=== PATIENT | female | born 1965 | race Caucasian/White ===

== ENCOUNTER 2024-10-31 07:58 | Emergency (ER) | payer MEDICAID, SELFPAY ==
[2024-10-31 08:01] VITALS: BMI 37.2
[2024-10-31 08:09] VITALS: BP 136/90; PULSE 71; RESP 19; TEMP 37; O2SAT 98; BMI 37.2
--- NOTE | 2024-10-31 08:30 | XR_ITS ---
Examination: Forearm, right, 2 views. Technique: Forearm, AP, lateral 2 views Date and time of exam: October 31, 2024 0843 hours INDICATIONS: Patient fell today with injury to the forearm, forearm pain. FINDINGS: Nonstandard views Acute fracture radial head and neck Shaft of the radius and ulna appear intact IMPRESSION: Limited study Fractures radial head and neck
--- NOTE | 2024-10-31 08:30 | XR_ITS ---
Examination: Right elbow 3 views Technique: Elbow AP, oblique, lateral 3 views Exam date and time: October 31, 2024 at 0843 hours INDICATIONS: Patient fell today with injury to the elbow, elbow pain. FINDINGS: Acute mildly impacted fracture radial neck Fracture appears to extend to the radial head No dislocation IMPRESSION: Acute fractures radial head and neck.
--- NOTE | 2024-10-31 08:31 | PD.EDADULT ---
ED General RME/HPI General Chief complaint: Extremity Injury, Upper Stated complaint: R ARM PAIN S/P FALL YESTERDAY Time Seen by Provider: 10/31/24 08:23 Arrival date/time: 10/31/24 07:58 CC: Right forearm right elbow pain HPI status post fall, ground-level, 24 hours ago, denies LOC or ALOC. Was at [place] when this happened and drove back to this area yesterday as this is their residence. Patient denies headache blurred vision nausea vomiting shortness of breath difficulty breathing chest pain loss of consciousness or altered level of consciousness. Related Data Home Medications ?Medication ?Instructions ?Recorded ?Confirmed lisinopril 20 mg tablet 40 mg PO QDAY #0 tabs 09/26/16 04/04/18 aripiprazole 2 mg tablet (Abilify) 2 mg PO QDAY 04/03/18 04/04/18 bupropion HCl 300 mg 24 hr tablet, 300 mg PO QAM 04/03/18 04/04/18 extended release (Wellbutrin XL) [id number] 8 mg-folic 400 1 tab PO QDAY 04/03/18 04/04/18 mcg-K 50 mcg-lutein 300 mcg tablet (Centrum Silver Women) Previous Rx's ?Medication ?Instructions ?Recorded docusate sodium 100 mg capsule 100 mg PO BID #40 caps 04/04/18 (Colace) hydrocodone 5 mg-acetaminophen 325 1 tab PO [id number] PRN pain #20 tabs 04/04/18 mg tablet ([place]) Allergies Allergy/AdvReac Type Severity Reaction Status Date / Time No Known Allergies Allergy Verified 10/31/24 08:00 Review of Systems Review of Systems Narrative Review of Systems: GEN: No fever, no chills, no weight loss EYES: No discharge, no visual changes, no pain HEENT: No ear pain, no congestion, no sore throat PULM: No shortness of breath, no cough, no congestion CV: No chest pain, no dyspnea on exertion, no palpitations GI: No nausea, no vomiting, no diarrhea, no pain, no constipation : No frequency, no urgency, no dysuria MUSC/SKEL: + joint pain, no back pain SKIN: No rash PSYCH: No hallucinations, no depression HEME/LYMPH: No easy bleeding or bruising tendencies NEURO: No weakness, no headache Past Medical History Past Medical History NEUROLOGIC: Negative Neurological Disorders or Seizures CARDIAC: Positive Cardiac Disorders and Hypertension; Negative Congestive Heart Failure RESPIRATORY: Negative Chronic Obstructive Pulmonary Disease (COPD) GASTROINTESTINAL: Negative Gastrointestinal Disorders GENITOURINARY: Negative Genitourinary Disorders or Renal Disease REPRODUCTIVE: Positive Previous Pregnancies (x7) MUSCULOSKELETAL: Negative Musculoskeletal Disorders ENDOCRINE: Negative Endocrine Disorders, Diabetes Mellitus Type 1 or Diabetes Mellitus Type 2 HEMATOLOGIC: Negative Blood Disorders PSYCHO/SOCIAL: Positive Depression and Anxiety OTHER HISTORY: Positive Chicken Pox and Measles; Negative Hospitalization, Autoimmune Disease, Shingles, Falls, Blood Transfusions, Blood Transfusion Reaction or Anesthesia Reactions Family History FAMILY HISTORY: Positive Family Cardiac Disorders, Family Cancer and Family Surgery; Negative Family Psychiatric Problems, Family Respiratory Disorders, Family Gastrointestinal Problems or Family Anesthesia Reaction Surgical History SURGICAL: Positive Tonsillectomy and Tubal Ligation Social History SMOKING STATUS: Former smoker ED Exam Narrative Physical exam: [General: Obese, in mild discomfort but not in any acute distress Head normocephalic no step-offs hematoma induration ulceration or crepitus. HEENT: Within acceptable limits Neck is supple nontender full range of motion flexion extension and rotation no tenderness with palpation of the cervical spinous processes. Chest equal chest rise nontender to palpation Respiratory: Clear to auscultation no wheezes crackles or rubs CV: Rate rhythm is regular no murmurs rubs or clicks Abdomen is distended secondary to body habitus soft nontender no masses positive bowel sounds all 4 quadrants Back: No CVA tenderness no spinous process tenderness from cervical spine thoracic and lumbar spine Skin: Minor abrasions to both knees. Otherwise skin is intact no petechiae rash induration ulceration or crepitus Extremities: Right upper extremity: No decreased range of motion of the right elbow with minimal edema, no abrasions, tenderness to palpation to the proximal forearm, cap refill in the digits less than 2 seconds full range of motion of the digits and the wrist. No tenderness to the shoulder with palpation. Left upper extremity unremarkable with full range of motion. Moving all extremity against resistance cap refill less than 2 seconds neurosensory intact Neuro: Awake alert oriented x3 Glascow coma 15 no focal deficits] Course Quality Measures none Orders Category Date Time Status Splint / Immobilizer STAT Care 10/31/24 09:01 Active XR elbow comp RT min 3V Stat Exams 10/31/24 08:30 Completed XR forearm RT 2V Stat Exams 10/31/24 08:30 Completed Tetanus, Diphtheria Toxoids/Pf [Tenivac-Adult] Med 10/31/24 08:34 Discontinued 0.5 ml IMI .ONCE ONE Vital Signs Vital signs: Vital Signs Temperature 98.6 F 10/31/24 08:09 Pulse Rate 71 10/31/24 08:09 Respiratory Rate 19 10/31/24 08:09 Blood Pressure 136/90 H 10/31/24 08:09 Pulse Oximetry (%) 98 10/31/24 08:09 Oxygen Delivery Method Room Air 10/31/24 08:09 Discharge Plan Plan Patient Disposition: HOME (Self Care) Patient condition on transfer: Stable Prescriptions/Referrals Prescriptions/Med Rec: No Action lisinopril 20 MG tablet 40 mg PO QDAY Qty: 0 bupropion HCl [Wellbutrin XL] 300 mg Tablet Extended Release 24 Hr 300 mg PO QAM aripiprazole [Abilify] 2 mg Tablet 2 mg PO QDAY [id number] K-lut [Centrum Silver Women] 8 mg iron-400 mcg-300 mcg Tablet 1 tab PO QDAY hydrocodone-acetaminophen [[place]] 5-325 mg tablet 1 tab PO [id number] MDD 4 PRN (Reason: pain) Qty: 20 0RF docusate sodium [Colace] 100 mg capsule 100 mg PO BID Qty: 40 0RF Referrals: Sam Solis MD [Physician] - In 1 week Reny Nino PA-C [Primary Care Provider] - In 1 week Problem List Clinical Impression: Elbow fracture, right Patient/Caregiver Discharge Instructions Other Activity Instructions:: Keep the arm in the sling, ibuprofen or Tylenol until pain subsides. Do not get the splint wet or take it off. If either of these happen return immediately to the emergency room for reevaluation. Follow-up with the orthopod listed above. Education Materials: ED Elbow Fracture Print Language: Frisian Stand Alone Forms: [place] Award Info., Work/School Release, Patient Portal Info Letter PA/ABHAY Supervising Physician ELLIOTT/ABHAY Supervising Physician: Rasta Miller ENP [facility] Imaging Provider imaging interpretation(s): X-ray of the elbow and of the forearm show the patient has a proximal radius ulnar head fracture is interpreted by me read by radiology. Medication Administration(s) Medication Administration History Discontinued Medications Tetanus/Diphtheria Toxoids (Tetanus,Diphtheria Toxoids/Pf (Adult) 0.5 Ml Syringe) 0.5 ml IMi .ONCE ONE Stop: 10/31/24 08:35
[2024-10-31] MEDS: TETANUS,DIPHTHERIA TOXOIDS/PF (ADULT) 0.5 ML SYRINGE IMi (09:15)
--- NOTE | 2024-10-31 09:53 | XR_ITS ---
Examination: CT right elbow, without contrast. 2-D sagittal reconstructions. 2-D coronal reconstructions. 3-D reconstructions. Date and time of exam:October 31, 2024 1019 hours INDICATIONS: Patient fell one day ago with injury to the elbow, elbow pain CTDI: vol (mGy):5.74 DLP: (mGycm):135 Technique: Multiple 1.25 mm axial sections of the right elbow have been obtained. 2-D sagittal and coronal reconstructions have been obtained. 3-D reconstructions have been obtained. Low dose protocols were performed. One or more of the following dose reduction techniques were used; automated exposure control, adjustment of the mA and/or KV according to patient size, use of iterative reconstruction technique. Findings: Acute fractures radial neck and head Trace depression of the radial head but overall no significant displacement Olecranon distal humerus intact IMPRESSION: Acute fractures radial head and neck
== END 2024-10-31 10:57 | disposition home or self-care (01) ==
PROVIDERS: Emergency Provider Family Medicine; PCP Physician Assistant
DX: S52.124A Nondisplaced fracture of head of right radius, initial encounter for closed fracture (principal); S52.134A Nondisplaced fracture of neck of right radius, initial encounter for closed fracture; W18.30XA Fall on same level, unspecified, initial encounter; Z23 Encounter for immunization
CPT/HCPCS: 29125; 73080; 73090; 73200; 90471; 90714; 99283

== ENCOUNTER → 2024-11-11 | Outpatient (CLI) | payer MEDICAID, SELFPAY ==
--- NOTE | 2024-11-11 | XR_ITS ---
Examination: Left elbow 3 views Technique: Elbow AP, oblique, lateral 3 views Exam date and time: November 11, 2024 at 0733 hours, comparison October 31, 2024 INDICATIONS: Injury to the elbow 2 weeks ago elbow pain. FINDINGS: Stable alignment fractures radial head and neck Humerus ulna intact IMPRESSION: Stable alignment fractures radial head and neck.
--- NOTE | 2024-11-11 | XR_ITS ---
Examination: Wrist, right 3 views Technique: Wrist AP, oblique, lateral 3 views Date and time of exam: November 11, 2024 0755 hours INDICATIONS: Wrist injury 2 weeks ago wrist pain FINDINGS: No acute fracture Moderate osteoarthritis radiocarpal joint IMPRESSION: No acute fracture or dislocation
--- NOTE | 2024-11-11 | XR_ITS ---
Examination: Forearm, right, 2 views. Technique: Forearm, AP, lateral 2 views Date and time of exam: November 11, 2024 0755 hours INDICATIONS: Injury to the forearm 2 weeks ago, forearm pain. FINDINGS: Acute impacted fracture radial neck Shaft of the radius and ulna intact IMPRESSION: Acute impacted fracture radial neck
== END | disposition home or self-care (01) ==
LOC: CDIM 07:14
PROVIDERS: PCP Physician Assistant; Referring Provider Nurse Practitioner Gerontology; Visit Provider Nurse Practitioner Gerontology
DX: S69.91XA Unspecified injury of right wrist, hand and finger(s), initial encounter (principal); S52.131A Displaced fracture of neck of right radius, initial encounter for closed fracture; S52.121A Displaced fracture of head of right radius, initial encounter for closed fracture; X58.XXXA Exposure to other specified factors, initial encounter
CPT/HCPCS: 73080; 73090; 73110

== ENCOUNTER → 2024-11-17 | Outpatient (CLI) | payer MEDICAID, SELFPAY ==
--- NOTE | 2024-11-17 | XR_ITS ---
Examination: Abdomen AP single view Technique: AP portable supine abdomen, single view Exam date and time: November 17, 2024 0723 hours INDICATIONS: History kidney stones flank pain months FINDINGS: Moderate stool throughout the colon No renal or ureteral calculi,. The osseous structures are intact IMPRESSION: No renal or ureteral calculi
== END | disposition home or self-care (01) ==
LOC: CDIM 06:37
PROVIDERS: PCP Physician Assistant; Referring Provider Surgery; Visit Provider Surgery
DX: N20.0 Calculus of kidney (principal)
CPT/HCPCS: 74018

== ENCOUNTER → 2024-12-16 | Outpatient (CLI) | payer MEDICAID, SELFPAY ==
--- NOTE | 2024-12-16 | XR_ITS ---
Exam: elbow bilateral, 6 views Technique: Elbow AP, oblique lateral each elbow total 6 views Exam date and time: December 16, 2024 0753 hours INDICATIONS: Patient fell 3 weeks ago with injury to both elbows, bilateral elbow pain. FINDINGS: Acute impacted fracture right radial neck No acute left elbow fracture No elbow dislocations IMPRESSION: Acute impacted fracture right radial neck.
--- NOTE | 2024-12-16 | XR_ITS ---
Examination: Bilateral wrists 6 views Technique one AP oblique lateral each wrist total 6 views Date and time: December 16, 2024 0800 hours INDICATIONS: Patient fell 2 days ago with injury to both wrists, bilateral wrist pain. FINDINGS: Moderate osteopenia. No acute fracture involving either wrist. No dislocations IMPRESSION: No acute fracture or dislocation involving either wrist
--- NOTE | 2024-12-16 | XR_ITS ---
Examination: Bilateral hands, 6 views. Technique: AP, Oblique, Lateral each hand total 6 views Date and time of exam: December 16, 2024 0753 hours INDICATIONS: Patient fell 2 days ago with injury to both hands, bilateral hand pain. FINDINGS: Moderate osteopenia. No acute fracture involving either hand No dislocations IMPRESSION: No acute fracture involving either hand
== END | disposition home or self-care (01) ==
LOC: CDIM 07:34
PROVIDERS: PCP Physician Assistant; Referring Provider Surgery Surgery of the Hand; Visit Provider Surgery Surgery of the Hand
DX: S52.131A Displaced fracture of neck of right radius, initial encounter for closed fracture (principal); S59.902A Unspecified injury of left elbow, initial encounter; S69.92XA Unspecified injury of left wrist, hand and finger(s), initial encounter; S69.91XA Unspecified injury of right wrist, hand and finger(s), initial encounter; W19.XXXA Unspecified fall, initial encounter
CPT/HCPCS: 73080; 73110; 73130

== ENCOUNTER → 2025-01-27 | Outpatient (CLI) | payer MEDICAID, SELFPAY ==
--- NOTE | 2025-01-27 13:16 | XR_ITS ---
Examination: Shoulder, right, 3 views Technique: Shoulder AP internal rotation, AP external rotation, Y view shoulder, 3 views Exam date and time : January 27, 2025, 1401 hours INDICATIONS: Right shoulder pain after falling 2 months ago. FINDINGS: No shoulder fracture or dislocation Mild narrowing glenohumeral joint IMPRESSION: No shoulder fracture or dislocation
== END | disposition home or self-care (01) ==
LOC: CDIM 13:10
PROVIDERS: PCP Physician Assistant; Referring Provider Physician Assistant; Visit Provider Physician Assistant
DX: M25.511 Pain in right shoulder (principal)
CPT/HCPCS: 73030